=== PATIENT | female | born 1990 | race Caucasian/White ===

== ENCOUNTER 2016-07-14 10:11 | Emergency (ER) | payer BC, MEDICAID ==
--- NOTE | 2016-07-14 10:18 | ER Document Report ---
ED Medical Screen (RME) - General Stated Complaint: PALPITATIONS Mode of Arrival: Ambulatory Information source: Patient Notes: Patient presents to the ED with c/o palpitations. 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 Denies CP, reports some heavieness feeling. Denies PMH. Denies family PMH. Denies energy drinks, cold medicines. I have greeted and performed a rapid initial assessment of this patient. A comprehensive ED assessment and evaluation of the patient, analysis of test results and completion of the medical decision making process will be conducted by additional ED providers. - Related Data Allergies/Adverse Reactions: No Known Allergies Allergy (Unverified 07/14/16 10:27) Physical Exam - Vital signs Vitals: Temp Pulse Resp BP Pulse Ox 97.9 F 103 H 16 126/82 H 100 07/14/16 10:15 07/14/16 10:15 07/14/16 10:15 07/14/16 10:15 07/14/16 10:15 Course - Vital Signs Vital signs: Temp Pulse Resp BP Pulse Ox 97.9 F 103 H 16 126/82 H 100 07/14/16 10:15 07/14/16 10:15 07/14/16 10:15 07/14/16 10:15 07/14/16 10:15
[2016-07-14] MEDS ORDERED: ASPIRIN 81 MG TABLET, CHEWABLE PO ONE (10:28)
[2016-07-14 10:59] LABS: ABSOLUTE BASOPHILS # (AUTO) 0.1 10^3/uL (0.0-0.2); ABSOLUTE EOSINOPHILS # (AUTO) 0.1 10^3/uL (0.0-0.6); ABSOLUTE LYMPHOCYTES (AUTO) 2.3 10^3/uL (0.5-4.7); ABSOLUTE MONOCYTES (AUTO) 0.6 10^3/uL (0.1-1.4); ABSOLUTE NEUT (AUTO) 5.3 10^3/uL (1.7-8.2); BASOPHILS % (AUTO) 0.8 % (0-2); EOSINOPHILS % (AUTO) 1.1 % (0-6); HEMATOCRIT 37.6 % (36.0-47.0); HEMOGLOBIN 12.8 g/dL (12.0-15.5); HGB HCT DIFFERENCE 0.8; LYMPHOCYTES % (AUTO) 27.1 % (13-45); MEAN CORPUSCULAR HEMOGLOBIN 30.8 pg (27.0-33.4); MEAN CORPUSCULAR HGB CONC 34.1 g/dL (32.0-36.0); MEAN CORPUSCULAR VOLUME 91 fl (80-97); MONOCYTES % (AUTO) 7.3 % (3-13); RED BLOOD COUNT 4.16 10^6/uL (3.72-5.28); RED CELL DISTRIBUTION WIDTH 13.4 % (11.5-14.0); SEGMENTED NEUTROPHILS % (AUTO) 63.7 % (42-78); WHITE BLOOD COUNT 8.3 10^3/uL (4.0-10.5)
--- NOTE | 2016-07-14 10:59 | ER Document Report ---
ED Cardiac - General Mode of Arrival: Ambulatory Information source: Patient TRAVEL OUTSIDE OF THE [place] IN LAST 30 DAYS: No - HPI Patient complains to provider of: Palpitations Associated symptoms: Other - See above <ANCELMO STEARNS - Last Filed: 07/14/16 10:54> <GURVINDERFRANK - Last Filed: 07/14/16 15:38> - General Chief Complaint: Palpitations Stated Complaint: PALPITATIONS Notes: Patient is a 25 year old female who presents to the emergency department complaining of palpitations. 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 Patient reports that throughout her shift last night she recorded her HR as between 110-115 while resting never falling below 102 and was in the 150s when walking. Patient also complains of mild shortness of breath with exertion and talking. Patient states that she took a half dose of Z-quil yesterday to help her sleep before her shift. (ANCELMO STEARNS) - Related Data Allergies/Adverse Reactions: No Known Allergies Allergy (Unverified 07/14/16 10:27) Past Medical History - General Information source: Patient - Social History Smoking Status: Never Smoker Chew tobacco use (# tins/day): No Frequency of alcohol use: None Drug Abuse: None Family History: Reviewed & Not Pertinent Patient has suicidal ideation: No Patient has homicidal ideation: No <ANCELMO STEARNS - Last Filed: 07/14/16 10:54> Review of Systems - Review of Systems Constitutional: No symptoms reported EENT: No symptoms reported Cardiovascular: See HPI, Palpitations Respiratory: See HPI, Short of breath Gastrointestinal: No symptoms reported Genitourinary: No symptoms reported Female Genitourinary: No symptoms reported Musculoskeletal: No symptoms reported Skin: No symptoms reported Hematologic/Lymphatic: No symptoms reported Neurological/Psychological: No symptoms reported -: Yes All other systems reviewed and negative <ANCELMO STEARNS - Last Filed: 07/14/16 10:54> Physical Exam - General General appearance: Appears well, Alert - HEENT Head: Normocephalic, Atraumatic - Respiratory Respiratory status: No respiratory distress Chest status: Nontender Breath sounds: Normal Chest palpation: Normal - Cardiovascular Rhythm: Tachycardia - rate increasing with inspiration and falls back down when exhaling Heart sounds: Normal auscultation Murmur: No - Back Back: Normal, Nontender - Extremities General upper extremity: Normal inspection General lower extremity: Normal inspection - Neurological Neuro grossly intact: Yes Cognition: Normal Orientation: AAOx4 Evie Coma Scale Eye Opening: Spontaneous Evie Coma Scale Verbal: Oriented Evie Coma Scale Motor: Obeys Commands [place] Coma Scale Total: 15 Speech: Normal - Psychological Associated symptoms: Normal affect, Normal mood - Skin Skin Temperature: Warm Skin Moisture: Dry Skin Color: Normal <ANCELMO STEARNS - Last Filed: 07/14/16 10:54> <FRANK HOLLINS - Last Filed: 07/14/16 15:38> - Vital signs Vitals: Temp Pulse Resp BP Pulse Ox 97.9 F 103 H 16 126/82 H 100 07/14/16 10:15 07/14/16 10:15 07/14/16 10:15 07/14/16 10:15 07/14/16 10:15 (ANCELMO STEARNS) (FRANK HOLLINS) Course <ANCELMO STEARNS - Last Filed: 07/14/16 10:54> - Laboratory Result Diagrams: 07/14/16 10:50 07/14/16 10:50 - Diagnostic Test Radiology reviewed: Image reviewed, Reports reviewed - Chest x-ray is unremarkable - EKG Interpretation by Me EKG shows normal: Sinus rhythm, [place], Intervals, QRS Complexes, ST-T Waves Rate: Normal - 77 Rhythm: NSR P Waves: LAE <FRANK HOLLINS - Last Filed: 07/14/16 15:38> - Re-evaluation Re-evalutation: 07/14/16 13:18 At this time the patient is resting in the bed, her heart rate is in the mid 70s. Her pulse ox is 99% on room air. She reports when she got up to go to bathroom her heart began to race in the 120s. She also states that she feels like she can't get a good breath and still feels short of breath. Her hemoglobin is 12.8, her serum CO2 is 25, pulse ox is 99% on room air, d- dimer is undetectable, troponin is undetectable. She does admit to not drinking much fluid throughout her shift last night. 07/14/16 15:27 After a liter of IV fluid, the patient went to the restroom, when she returned and plugged the monitor back in, her heart rate stayed in the mid 70s. At this time the heart rate is 72. (FRANK HOLLINS) - Vital Signs Vital signs: Temp Pulse Resp BP Pulse Ox 97.9 F 103 H 16 106/63 98 07/14/16 10:15 07/14/16 10:15 07/14/16 14:01 07/14/16 14:00 07/14/16 14:01 (ANCELMO STEARNS) (FRANK HOLLINS) Discharge <ANCELMO STEARNS - Last Filed: 07/14/16 10:54> <FRANK HOLLINS - Last Filed: 07/14/16 15:38> - Discharge Clinical Impression: Tachycardia, Dehydration Dyspnea Qualifiers: Dyspnea type: unspecified Qualified Code(s): R06.00 - Dyspnea, unspecified Condition: Stable Disposition: HOME, SELF-CARE Additional Instructions: Palpitations (Irregular/Rapid Heartrate): Irregular or rapid heartbeat is called "palpitation." To diagnose the cause of palpitation, we have to "catch it in the act" with an EKG. Sinus Tachycardia: This is a rapid (but NORMAL) rhythm that can be due to fever, pain, anxiety, lack of sleep, over-exertion, or drugs. Cold medications, caffeine, and diet pills are particularly likely to cause tachycardia. Usually , all that's required is rest, reassurance, and avoiding caffeine, alcohol, nicotine, and unnecessary medicines. Paroxysmal Atrial Tachycardia (PAT): This abnormally rapid heartbeat is caused by a "short circuit" in the electrical system of the heart. It is not dangerous, unless other heart disease is present. These attacks of PAT may occur occasionally for years. Medication is available for treatment. Paroxysmal Atrial Fibrillation or Atrial Flutter: This is irregular electrical activity in the upper heart chamber. These abnormal rhythms often occur with valve disease or in hearts damaged by hardening of the arteries. These rhythms usually require further testing, for example a cardiac echo. Premature Beats: Extra beats occur more commonly after caffeine, nicotine , alcohol, cold pills, diet pills. Emotional stress or fatigue also provoke them. Extra beats are only dangerous when heart disease is present. They usually need no treatment. If they're frequent, or if evidence of heart disease develops, medication can be given to suppress them. If we were unable to "catch" the palpitations on EKG, you should try to get an EKG immediately if the symptoms begin again. Contact the physician at once if you develop persistent lightheadedness, shortness of breath, chest pain , or swelling of the ankles. //////////////////////////////////////////////////////////////////////////////// //////////////////////////////////////////////////////////////////////////////// ///////////////// Be sure to drink plenty of fluids, get plenty of rest, and avoid caffeine. Call Dr. Luna's office on Saturday to schedule a follow-up appointment. RETURN TO THE EMERGENCY ROOM IF ANY NEW OR WORSENING SYMPTOMS. Referrals: MONAE LUNA MD [ACTIVE STAFF] - Follow up in 3-5 days Scribe Attestation: 07/14/16 15:38 I personally performed the services described in the documentation, reviewed and edited the documentation which was dictated to the scribe in my presence, and it accurately records my words and actions. (FRANK HOLLINS) Scribe Documentation - Scribe Written by Luna:: luna Gill, 07/14/16, 1101 acting as scribe for :: Gurvinder <ANCELMO STEARNS - Last Filed: 07/14/16 10:54>
[2016-07-14 11:18] LABS: ALANINE AMINOTRANSFERASE 24 U/L (9-52); ALBUMIN 4.7 g/dL (3.5-5.0); ALKALINE PHOSPHATASE 48 U/L (38-126); ANION GAP 13 (5-19); ASPARTATE AMINO TRANSFERASE 20 U/L (14-36); BILIRUBIN,TOTAL 0.5 mg/dL (0.2-1.3); BLOOD UREA NITROGEN 17 mg/dL (7-20); CALCIUM 9.5 mg/dL (8.4-10.2); CARBON DIOXIDE 25 mmol/L (22-30); CHLORIDE 105 mmol/L (98-107); CREATINE KINASE 77 U/L (30-135); CREATININE RESULT 0.73 mg/dL (0.52-1.25); GLUCOSE 90 mg/dL (75-110); POTASSIUM 4.1 mmol/L (3.6-5.0); SODIUM 142.9 mmol/L (137-145); TOTAL PROTEIN 7.2 g/dL (6.3-8.2)
[2016-07-14] MEDS ORDERED: NORMAL SALINE 1000 ML 1,000 ML IV ONE ×2 (13:18→14:16)
[2016-07-14 14:18] VITALS: BP 106/63
--- NOTE | 2016-07-14 19:30 | EKG REPORT ---
SEVERITY:- ABNORMAL ECG - SINUS RHYTHM LEFT ATRIAL ABNORMALITY : Confirmed by: Kami Luna MD 14-Jul-2016 19:29:23
== END 2016-07-14 16:26 | disposition home or self-care (01) ==
LOC: ER 10:11
DX: R00.0 Tachycardia, unspecified (principal); R06.00 Dyspnea, unspecified; E86.0 Dehydration; R50.9 Fever, unspecified
CPT/HCPCS: 93005; 99285; 96360; 96361; 36415; 82550; 84443; 84703; 85025; 80053; 84484; 85379; 71010; 93010; J7030

== ENCOUNTER → 2016-10-09 | Outpatient (CLI) | payer BC ==
--- NOTE | 2016-10-21 14:47 | XCELERA REPORT ---
[address] [address] Transthoracic Echocardiogram Report Name: TORREY HOLDEN Age: 25 yrs Gender: Female : 1990 Patient Status: Outpatient Patient Location: Study Date: 10/09/2016 03:11 PM Height: 66 in Weight: 154 lb BSA: 1.8 m2 Procedure: A two-dimensional transthoracic echocardiogram with color flow and Doppler was performed. The study was technically adequate with some images being suboptimal in quality. Reason For Study: CHEST PAIN / SOB / TACHYCARDIA History: CHEST PAIN / SOB / TACHYCARDIA. Ordering Physician: KAMI WALDEN Performed By: Joya Barraagn Interpretation Summary The left ventricle is normal in size. There is normal left ventricular wall thickness. Left ventricular systolic function is normal. LV EF is > than 55% Doppler measurements suggest normal left ventricular diastolic function The left ventricular wall motion is normal. There is no thrombus. There is no ventricular septal defect visualized. The right ventricle is normal in size and function. The left atrial size is normal. There is no evidence of mitral valve prolapse. There is no vegetation seen on the mitral valve. There is no mitral valve stenosis. There is no mitral regurgitation noted. There is no aortic valve stenosis There is no LVOT obstruction. No aortic regurgitation is present. There is no tricuspid stenosis. There is a trace amount of tricuspid regurgitation Right ventricular systolic pressure is normal. RVSP is 28 mm of Hg , with RA mean of 5. There is no pericardial effusion. MMode/2D Measurements \T\ Calculations RVDd: 2.2 cm LVIDd: 4.9 cm FS: 29.2 % Ao root diam: 2.5 cm IVSd: 0.64 cm LVIDs: 3.5 cm EDV(Teich): 111.6 ml LVPWd: 0.65 cmESV(Teich): 49.3 ml Ao root area: 4.9 cm2 EF(Teich): 55.8 % LA dimension: 2.5 cm LVOT diam: 1.8 cm LVOT area: 2.5 cm2 Doppler Measurements \T\ Calculations MV E max dustin: MV P1/2t max dustin: Ao V2 max: LV V1 max P.2 cm/sec 96.8 cm/sec 135.7 cm/sec 5.4 mmHg MV A max dustni: MV P1/2t: 54.7 msec Ao max PG: LV V1 max: 41.3 cm/sec MVA(P1/2t): 4.0 cm2 7.4 mmHg 116.5 cm/sec MV E/A: 2.4 MV dec slope: GERARDO(V,D): 2.2 cm2 518.7 cm/sec2 PA V2 max: TR max dustin: 69.8 cm/sec 237.2 cm/sec PA max PG: TR max P.5 mmHg 1.9 mmHg Left Ventricle The left ventricle is normal in size. There is normal left ventricular wall thickness. Left ventricular systolic function is normal. LV EF is > than 55%. Doppler measurements suggest normal left ventricular diastolic function. The left ventricular wall motion is normal. There is no thrombus. There is no ventricular septal defect visualized. Right Ventricle The right ventricle is normal in size and function. Atria The right atrium is normal. The left atrial size is normal. Mitral Valve There is no evidence of mitral valve prolapse. There is no vegetation seen on the mitral valve. There is no mitral valve stenosis. There is no mitral regurgitation noted. Aortic Valve The aortic valve is trileaflet. The aortic valve opens well. There is no aortic valvular vegetation. There is no aortic valve stenosis. There is no LVOT obstruction. No aortic regurgitation is present. Tricuspid Valve There is no tricuspid stenosis. There is a trace amount of tricuspid regurgitation. Right ventricular systolic pressure is normal. RVSP is 28 mm of Hg , with RA mean of 5. Pulmonic Valve There is no pulmonic valvular stenosis. There is no pulmonic valvular regurgitation. Great Vessels The aortic root is normal size. Effusions There is no pericardial effusion. : KAMI WALDEN > Kami Walden
== END ==
LOC: SP 14:50
PROVIDERS: ATTEND Specialist
DX: R07.9 Chest pain, unspecified (principal)
CPT/HCPCS: 93306

== ENCOUNTER → 2018-06-23 | Outpatient (CLI) | payer OTHER ==
--- NOTE | 2018-06-23 15:31 | RADIOLOGY REPORT (SQ) ---
EXAM DESCRIPTION: SHOULDER LEFT 2 OR MORE VIEWS COMPLETED DATE/TIME: 06/23/2018 3:14 pm REASON FOR STUDY: ACUTE PAIN OF LEFT SHOULDER (M25.512) M25.512 PAIN IN LEFT SHOULDER COMPARISON: None. NUMBER OF VIEWS: Three views. TECHNIQUE: Internal rotation, external rotation, and Y view images acquired of the left shoulder. LIMITATIONS: None. FINDINGS: MINERALIZATION: Normal. BONES: No acute fracture or dislocation. No worrisome bone lesions. JOINTS: No dislocation. VISUALIZED LUNGS AND RIBS: No pneumothorax. No rib fracture. SOFT TISSUES: No radiopaque foreign body. OTHER: No other significant finding. IMPRESSION: NEGATIVE STUDY OF THE LEFT SHOULDER. NO RADIOGRAPHIC EVIDENCE OF ACUTE INJURY. TECHNICAL DOCUMENTATION: JOB ID: [id number] [employer]- All Rights Reserved Reading location - IP/workstation name: MARINA
== END ==
LOC: RAD 14:48
PROVIDERS: ATTEND Family Medicine
DX: M25.512 Pain in left shoulder (principal)

== ENCOUNTER → 2018-07-28 | Outpatient (CLI) | payer BC ==
--- NOTE | 2018-07-28 20:13 | XCELERA REPORT ---
[address] [address] Transthoracic Echocardiogram Report Name: TORREY HOLDEN Age: 27 yrs Gender: Female : 1990 Patient Status: Preadmit Patient Location: RAD Study Date: 07/28/2018 03:07 PM Height: 66 in Weight: 160 lb BSA: 1.8 m2 Procedure: A two-dimensional transthoracic echocardiogram with color flow and Doppler was performed. The study was technically limited with all images being suboptimal in quality. Reason For Study: PALPATIONS History: PALPATIONS. Ordering Physician: KAMI WALDEN Performed By: Caren Donahue Interpretation Summary The left ventricle is normal in size. There is normal left ventricular wall thickness. LV EF is 65% The left ventricular ejection fraction is within normal limits. Doppler measurements suggest impaired left ventricular relaxation, which is associated with grade I/IV or mild diastolic dysfunction The left ventricular wall motion is normal. There is no thrombus. There is no ventricular septal defect visualized. The right ventricle is normal in size and function. The right atrium is normal. The left atrial size is normal. The interatrial septum is intact with no evidence for an atrial septal defect. There is no evidence of mitral valve prolapse. There is no vegetation seen on the mitral valve. There is no mitral valve stenosis. There is a trace amount of mitral regurgitation The aortic valve is trileaflet. The aortic valve is normal in structure and functions normally There is no aortic valvular vegetation. There is no aortic valve stenosis There is no LVOT obstruction. No aortic regurgitation is present. There is no tricuspid stenosis. There is a trace amount of tricuspid regurgitation Right ventricular systolic pressure is normal. RVSP is 28 mm of Hg ,with RA mean of 5. There is no pulmonic valvular stenosis. There is no pulmonic valvular regurgitation. There is no pericardial effusion. MMode/2D Measurements & Calculations RVDd: 2.0 cm LVIDd: 5.1 cm FS: 37.2 % Ao root diam: 2.4 cm IVSd: 0.59 cm LVIDs: 3.2 cm EDV(Teich): 122.5 ml Ao root area: 4.5 cm2 LVPWd: 0.80 cm ESV(Teich): 40.7 ml EF(Teich): 66.8 % Doppler Measurements & Calculations MV E max dustin: MV dec slope: Ao V2 max: LV V1 max P.4 cm/sec 560.8 cm/sec2 130.5 cm/sec 4.4 mmHg MV A max dustin: MV dec time: 0.13 sec Ao max PG: LV V1 max: 77.9 cm/sec 6.8 mmHg 104.8 cm/sec MV E/A: 0.97 PA V2 max: TR max dustin: 68.3 cm/sec 238.5 cm/sec PA max P.9 mmHgTR max P.0 mmHg Left Ventricle The left ventricle is normal in size. There is normal left ventricular wall thickness. LV EF is 65%. The left ventricular ejection fraction is within normal limits. Doppler measurements suggest impaired left ventricular relaxation, which is associated with grade I/IV or mild diastolic dysfunction. The left ventricular wall motion is normal. There is no thrombus. There is no ventricular septal defect visualized. Right Ventricle The right ventricle is normal in size and function. Atria The right atrium is normal. The left atrial size is normal. The interatrial septum is intact with no evidence for an atrial septal defect. Mitral Valve There is no evidence of mitral valve prolapse. There is no vegetation seen on the mitral valve. There is no mitral valve stenosis. There is a trace amount of mitral regurgitation. Aortic Valve The aortic valve is trileaflet. The aortic valve is normal in structure and functions normally. There is no aortic valvular vegetation. There is no aortic valve stenosis. There is no LVOT obstruction. No aortic regurgitation is present. Tricuspid Valve There is no tricuspid stenosis. There is a trace amount of tricuspid regurgitation. Right ventricular systolic pressure is normal. RVSP is 28 mm of Hg ,with RA mean of 5. Pulmonic Valve There is no pulmonic valvular stenosis. There is no pulmonic valvular regurgitation. Great Vessels The aortic root is normal size. Effusions There is no pericardial effusion. : KAMI WALDEN > Kami Walden
== END ==
LOC: RAD 17:05
PROVIDERS: ATTEND Specialist
DX: R00.2 Palpitations (principal)
CPT/HCPCS: 93306

== ENCOUNTER 2019-07-29 06:51 | Day surgery (SDC) | payer BC ==
[~2019-07-29 06:51] MED LIST: DEXTROSE 5%-LACTATED RINGERS 1,000 ML IV PRN
[2019-07-29 07:16] LABS: ABSOLUTE EOSINOPHILS # (AUTO) 0.2 10^3/uL (0.0-0.6); ABSOLUTE LYMPHOCYTES (AUTO) 2.2 10^3/uL (0.5-4.7); ABSOLUTE MONOCYTES (AUTO) 0.5 10^3/uL (0.1-1.4); ABSOLUTE NEUT (AUTO) 3.3 10^3/uL (1.7-8.2); BASOPHILS % (AUTO) 0.6 % (0-2); EOSINOPHILS % (AUTO) 2.4 % (0-6); HEMATOCRIT 38.2 % (36.0-47.0); HEMOGLOBIN 12.8 g/dL (12.0-15.5); LYMPHOCYTES % (AUTO) 35.8 % (13-45); MEAN CORPUSCULAR HEMOGLOBIN 31.4 pg (27.0-33.4); MEAN CORPUSCULAR HGB CONC 33.5 g/dL (32.0-36.0); MEAN CORPUSCULAR VOLUME 94 fl (80-97); MONOCYTES % (AUTO) 8.5 % (3-13); PLATELET COUNT 169 10^3/uL (150-450); RED BLOOD COUNT 4.07 10^6/uL (3.72-5.28); RED CELL DISTRIBUTION WIDTH 14.5 % (11.5-14.0); SEGMENTED NEUTROPHILS % (AUTO) 52.7 % (42-78); TOTAL CELLS COUNTED % (AUTO) 100 %; WHITE BLOOD COUNT 6.2 10^3/uL (4.0-10.5)
[2019-07-29] MEDS ORDERED: BUPIVACAINE HCL 0.25 % INJ/PF (2.5 MG/1 ML) 30 ML VIAL ONE (09:32)
[2019-07-29] MEDS ORDERED: BUPIVACAINE INJ/PF LIPOSOME/PF 266 MG/20 ML SDV ONE (09:32)
[2019-07-29] MEDS ORDERED: MIDAZOLAM 2 MG/2 ML INJ ONE (10:10)
[2019-07-29] MEDS ORDERED: ONDANSETRON HCL INJ/PF 4 MG/2 ML SDV ONE (10:10)
[2019-07-29] MEDS ORDERED: MORPHINE SULFATE 10 MG/ML INJ ONE (10:10)
[2019-07-29] MEDS ORDERED: DEXAMETHASONE SOD PHOSPHATE INJ 4 MG/1 ML VIAL ONE (10:10)
[2019-07-29] MEDS ORDERED: FENTANYL CITRATE INJ/PF 100 MCG/2 ML AMPUL ONE (10:10)
[2019-07-29] MEDS ORDERED: PROPOFOL INJ 200 MG/20 ML VIAL IV ONE (10:11)
[2019-07-29] MEDS ORDERED: CEFAZOLIN INJ 1 GM VIAL ONE (10:38)
[2019-07-29] MEDS ORDERED: FENTANYL CITRATE INJ/PF 100 MCG/2 ML AMPUL IV PRN ×3 (12:05)
[2019-07-29] MEDS ORDERED: MEPERIDINE HCL/PF INJ 25 MG/1 ML DISP.SYRIN IV PRN (12:05)
[2019-07-29] MEDS ORDERED: MORPHINE SULFATE 10 MG/ML INJ IV PRN (12:05)
[2019-07-29] MEDS ORDERED: DIPHENHYDRAMINE HCL 50 MG/ML VIAL IV PRN (12:05)
[2019-07-29] MEDS ORDERED: PROMETHAZINE HCL INJ 25 MG/1 ML VIAL IV PRN ×2 (12:05)
[2019-07-29] MEDS ORDERED: OXYCODONE-ACETAMINOPHEN 5-325 MG TABLET PO PRN (12:12)
--- NOTE | 2019-07-29 12:12 | Discharge Summary ---
Discharge Summary (SDC) - Discharge Final Diagnosis: buttock hematoma Date of Surgery: 07/29/19 Discharge Date: 07/29/19 Condition: Good Treatment or Instructions: [facility] [address] [place], [place] [id number] Wound Care After I&D 1. Pain will usually be very well managed with [id number] medications such as Tylenol, Advil, or Aleve. If a narcotic prescription is used you cannot take this and drive or operate dangerous machinery while on this medication. 2. If bleeding occurs postoperatively apply firm pressure over the site for 10 minutes and it will usually stop. If it persists call the office and return during office hours or go to the emergency room in the evenings or weekends. 3. You may shower in 48 hours. It is usually best to remove the outer dressing before the shower but leave the steri strips in place underneath. Allow warm water and soap to wash over wound, do not scrub. Pat dry and cover with gauze and tape. 4. Avoid direct pressure on incision. 5. Schedule a follow up in 7-10 days to monitor healing. In some cases an excision of the area may be needed in the future to decrease risk of recurrence. 6. If any problems or questions call during office hours [phone]. If at night or on the weekend you may call [facility] [phone] and ask for the surgicalist ent consultant. Discharge Diet: As Tolerated Discharge Activity: Activity As Tolerated, Other - avoid direct pressure on incision. Report the Following to Your Physician Immediately: Increase in Pain, Fever over 101 Degrees, Unusual Bleeding, Redness, Swelling, Warmth, Increased Soreness, Drainage-Foul Smelling
--- NOTE | 2019-07-29 12:17 | Operative Report ---
Operative Report DATE OF SURGERY: 07/29/19 PREOPERATIVE DIAGNOSIS: Chronic left buttock hematoma with rind POSTOPERATIVE DIAGNOSIS: Same OPERATION: 1. Complete excision of left buttock hematoma with rind. 2. Drainage of left buttocks. 3. Intraoperative ultrasonography SURGEON: [employer] INTERN: [employer] ANESTHESIA: GA TISSUE REMOVED OR ALTERED: Hematoma, cavity lining COMPLICATIONS: Same ESTIMATED BLOOD LOSS: EBL 100 cc INTRAOPERATIVE FINDINGS: See below PROCEDURE: Patient was seen in preop holding area the left buttock was marked. She is then taken the operating room general anesthesia was induced. She was rolled in the right lateral decubitus position left side up. Buttocks exposed, prepped and draped sterile fashion. Surgical plan and surgical timeout were conducted. The left buttock was scanned with the variable frequency linear transducer. Findings were significant for a well-circumscribed, star-shaped mass, with intraluminal fluid, and floating material. The mass was in the subcutaneous space, tunneled to the gluteus tyrone muscle. Approximately 12 cm in diameter. It involved the mid to upper portion of the left buttock. We marked the skin for a small transverse incision approximately 5 to 6 cm, anesthetized the skin with quarter percent Marcaine, and then incised the skin with a #10 blade. The subcutaneous tissue was divided with electrocautery. We continued to dissect deeper into the deeper layers of the subcutaneous tissue until the surface of the defined hematoma was identified. We opened up the hematoma with Dr. carrillo and evacuated serous fluid. For the next 45 minutes using a combination of blunt, electrocautery, and scissor dissection, the entire hematoma with its no capsule, and contents was excised. Superiorly and deep the mass was adhered to the subcutaneous tissue. Inferiorly and medially the mass was bio bonded to the gluteus tyrone fascia. Therefore a portion of the fascia was removed representing approximately 10 to 15% of the surface area of the mass. Once the mass and its contents were excised in a piecemeal fashion, we carefully inspected evacuated operative space. Bleeders were clipped and cauterized and oversewed with 2-0 Vicryl as encountered. A large Pavel drain through the inferior lateral aspect of the left buttock, secured it to the skin with 0 Prolene suture trended to the appropriate length, tucked the sternal and into the operative site. Sponge and needle counts are correct. Wound closed with 2-0 Vicryl 3-0 Vicryl benzoin and Steri-Strips. Drain hooked to bulb suction. Patient tolerated procedure well. A bulky dressing for compression was applied. She is taken to recovery room in stable condition. The physician first assistant manager, Ms. Mluligan, provided assistance during this case by: retracting tissue, instillation of local anesthesia and closure of skin incisions.
[2019-07-29] MEDS ORDERED: EPHEDRINE SULFATE INJ 50 MG/1 ML AMPULE ONE (12:20)
[2019-07-29] MEDS ORDERED: OXYCODONE-ACETAMINOPHEN 5-325 MG TABLET ONE (12:55)
[2019-07-29] MEDS ORDERED: PROMETHAZINE HCL INJ 25 MG/1 ML VIAL ONE (13:09)
[2019-07-29 14:33] VITALS: BP 105/62
== END 2019-07-29 14:15 | disposition home or self-care (01) ==
LOC: OROUT 06:51
PROVIDERS: ATTEND Surgery
DX: S30.0XXA Contusion of lower back and pelvis, initial encounter (principal); X58.XXXA Exposure to other specified factors, initial encounter; I49.8 Other specified cardiac arrhythmias; D64.9 Anemia, unspecified
CPT/HCPCS: 36415; 84703; 85025; 88342 ×2; 88341 ×2; 88305 ×2; 00300; 27632; J2250; J0690; J1100; J3490; J3010; J2550; J2405; J2704; 300; 88304; C9290; J2270